=== PATIENT | female | born 1980 | race Caucasian/White ===

== ENCOUNTER 2018-10-26 07:08 | Day surgery (SDC) | payer BC ==
[~2018-10-26 07:08] MED LIST: Glycopyrrolate 0.2 MG/ML SDV ONE; Lidocaine 2% 5 ML SDV ONE; Midazolam 1 MG/ML 2 ML SDV ONE; Neostigmine Methylsulfate 1 MG/ML 5 ML Syringe ONE; Ondansetron 4 MG/2 ML SDV ONE; Propofol 200 MG/20 ML SDV ONE; Rocuronium 100 MG/10 ML MDV ONE; Sodium Chloride 0.9% 10 ML SDV IV PRN; Sodium Chloride 0.9% 10 ML Syringe FLUSH PRN; Sodium Chloride 0.9% 2.5 ML Syringe FLUSH PRN; ceFAZolin 1 GM Vial IM ONE; fentaNYL 250 MCG/5 ML SDV ONE
[2018-10-26] MEDS ORDERED: Bupivacaine 0.25% 10 ML SDV ONE (07:39)
[2018-10-26] MEDS ORDERED: Scopolamine 1.5 MG Transdermal Patch TRDERM PRN (08:37)
--- NOTE | 2018-10-26 08:37 | PCM.PREANE ---
Preanesthetic Assessment - Anesthesia/Transfusion/Family Hx Anesthesia History: Prior Anesthesia Reaction Type of Anesthesia Reaction: Excessive Nausea/Vomiting Family History of Anesthesia Reaction: No Transfusion History: No Prior Transfusion(s) - Review of Systems General: No Symptoms Pulmonary: No Symptoms Cardiovascular: No Symptoms Gastrointestinal: No Symptoms Neurological: No Symptoms Other: Reports: None - Physical Assessment NPO Status Date: 10/25/18 Height: 5 ft 4 in Weight: 71.668 kg ASA Class: 1 Mental Status: Alert & Oriented x3 Airway Class: Mallampati = 2 Dentition: Reports: Normal Dentition ROM/Head Extension: Full Lungs: Clear to Auscultation, Normal Respiratory Effort Cardiovascular: Regular Rate, Regular Rhythm - Lab Values: Laboratory Last Values WBC 6.18 K/uL (4.0-11.0) 10/26/18 08:13 RBC 4.29 M/uL (4.30-5.90) L 10/26/18 08:13 Hgb 13.7 g/dL (12.0-16.0) 10/26/18 08:13 Hct 42.1 % (36.0-46.0) 10/26/18 08:13 MCV 98.1 fL (80.0-98.0) H 10/26/18 08:13 MCH 31.9 pg (27.0-32.0) 10/26/18 08:13 MCHC 32.5 g/dL (31.0-37.0) 10/26/18 08:13 RDW Std Deviation 46.9 fl (28.0-62.0) 10/26/18 08:13 RDW Coeff of Mikala 13 % (11.0-15.0) 10/26/18 08:13 Plt Count 330 K/uL (150-400) 10/26/18 08:13 MPV 9.50 fL (7.40-12.00) 10/26/18 08:13 Nucleated RBC % 0.0 /100WBC 10/26/18 08:13 Nucleated RBCs # 0 K/uL 10/26/18 08:13 - Allergies Allergies/Adverse Reactions: Allergies Allergy/AdvReac Type Severity Reaction Status Date / Time amoxicillin Allergy Other Verified 10/20/18 14:42 bee venom protein (honey bee) Allergy Hives Verified 10/20/18 14:45 latex Allergy Rash Verified 10/20/18 14:46 - Blood Blood Available: No - Anesthesia Plan Pre-Op Medication Ordered: Other (scop) - Acknowledgements Anesthesia Type Planned: General Anesthesia Pt an Appropriate Candidate for the Planned Anesthesia: Yes Alternatives and Risks of Anesthesia Discussed w Pt/Guardian: Yes Pt/Guardian Understands and Agrees with Anesthesia Plan: Yes Additional Comments: PMH: none PLAN: GET PreAnesthesia Questionnaire Genitourinary History: Reports: None 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: Neurological History: Reports: Headaches, Chronic, Other (See Below) Other Neuro History: gets tension headaches, hx of motion sickness Psychiatric History: Reports: Anxiety - Past Surgical History Head Surgeries/Procedures: Reports: None HEENT Surgical History: Reports: Oral Surgery, Other (See Below) Other HEENT Surgeries/Procedures: has 1 upper dental implant, wisdom teeth removal Female Surgical History: Reports: Section Other Female Surgeries/Procedures: x2 - SUBSTANCE USE Smoking Status *Q: Current Some Day Smoker Tobacco Use Within Last Twelve Months: Cigarettes Recreational Drug Use History: No - HOME MEDS Home Medications: Home Meds FLUoxetine HCl [Prozac] 20 mg PO DAILY 10/20/18 [History] Multivitamin [Daily Multiple Vitamin] 1 tab PO DAILY 10/20/18 [History] - CURRENT (IN HOUSE) MEDS Current Meds: Current Medications Cefazolin Sodium (Ancef) 1 gm IM ONETIME ONE Stop: 10/26/18 05:01 Lactated Ringer's (Ringers, Lactated) 1,000 mls @ 125 mls/hr IV ASDIRECTED RAFA Sodium Chloride (Saline Flush) 10 ml FLUSH ASDIRECTED PRN PRN Reason: Keep Vein Open Sodium Chloride (Saline Flush) 2.5 ml FLUSH ASDIRECTED PRN PRN Reason: Keep Vein Open Sodium Chloride (Normal Saline) 10 ml IV ASDIRECTED PRN PRN Reason: IV Use Discontinued Medications Bupivacaine HCl (Sensorcaine-Mpf 0.25%) Confirm Administered Dose 10 ml .ROUTE .STK-MED ONE Stop: 10/26/18 07:40 Fentanyl (Sublimaze) Confirm Administered Dose 250 mcg .ROUTE .STK-MED ONE Stop: 10/26/18 07:01 Glycopyrrolate (Robinul) Confirm Administered Dose 0.4 mg .ROUTE .STK-MED ONE Stop: 10/26/18 07:01 Lidocaine (Xylocaine-Mpf 2%) Confirm Administered Dose 5 ml .ROUTE .STK-MED ONE Stop: 10/26/18 07:01 Midazolam HCl (Versed 1 Mg/Ml) Confirm Administered Dose 2 mg .ROUTE .STK-MED ONE Stop: 10/26/18 07:01 Neostigmine Methylsulfate (Neostigmine) Confirm Administered Dose 5 mg .ROUTE .ST-MED ONE Stop: 10/26/18 07:01 Ondansetron HCl (Zofran) Confirm Administered Dose 4 mg .ROUTE .STK-MED ONE Stop: 10/26/18 07:01 Propofol (Diprivan 20 Ml) Confirm Administered Dose 200 mg .ROUTE .STK-MED ONE Stop: 10/26/18 07:01 Rocuronium [place] (Zemuron) Confirm Administered Dose 100 mg .ROUTE .STK-MED ONE Stop: 10/26/18 07:02
[2018-10-26] MEDS ORDERED: Lactated Ringers 1,000 ML IV SCH (08:45)
[2018-10-26] MEDS ORDERED: Dexamethasone 4 MG/ML 5 ML MDV ONE (10:05)
[2018-10-26] MEDS ORDERED: Ketorolac 30 MG/ML SDV ONE (11:13)
--- NOTE | 2018-10-26 11:33 | PCM.OPNOTE ---
- General Post-Op/Procedure Note Date of Surgery/Procedure: 10/26/18 Operative Procedure(s): Operative laparoscopy with bilateral salpingectomy/ essure coils removed. Diagnostic hysteroscopy with D&C, thermal endometrial ablation Findings: Normal appearing ovaries/fallopian tubes. Essure coils removed No endometrial intracavitary lesions identified Pre Op Diagnosis: Menorrhagia. Pelvic pain Post-Op Diagnosis: Same Anesthesia Technique: General ET Tube Primary Surgeon: Lucero Tovar [employer] Secretary: Shannon Duenas Fluid Replacement, Intraop: 1,500 EBL in mLs: 20 Complications: none known Condition: Good Free Text/Narrative:: Dictation [id number]
[2018-10-26] MEDS: fentaNYL 100 MCG/2 ML SDV IVPUSH PRN ×2 (11:45→11:57)
--- NOTE | 2018-10-26 12:34 | OR ---
SURGEON: Lucero Tovar M.D. DATE OF PROCEDURE: 10/26/2018 PREOPERATIVE DIAGNOSES: 1. Menorrhagia. 2. Pelvic pain. POSTOPERATIVE DIAGNOSES: 1. Menorrhagia. 2. Pelvic pain. PROCEDURES: 1. Operative laparoscopy with bilateral salpingectomy and Essure coils removal. 2. Diagnostic hysteroscopy with dilation and curettage of endometrium and thermal endometrial ablation. PRIMARY SURGEON: Lucero Tovar MD. CHASER HELPER: Divina Duenas. ANESTHESIA: General endotracheal anesthesia. FLUIDS: 1500 mL of crystalloid. ESTIMATED BLOOD LOSS: 20 mL. COMPLICATIONS: None. FINDINGS: Normal-appearing pelvis overall. Some uterovesical adhesions noted. Otherwise normal-appearing ovaries and tubes. Upon hysteroscopy, normal-appearing endometrial cavity with no intracavitary lesions identified. DISPOSITION: The patient to PACU in stable condition. SPECIMENS: To Pathology. PROCEDURE IN DETAIL: Evelyn is a 38-year-old female who has ongoing difficulties with menorrhagia and pelvic pain. At this time, she would like to have her Essure coils removed. Discussed with her the best way to do this to actually remove the fallopian tubes which will expose the coils and allow removal laparoscopically. She would like to proceed in this manner. She is also having difficulty with heavy menses and prefers to proceed with an endometrial ablation at the same time. Risks of procedure have been discussed with proper consent obtained. The patient was taken to the operating room where she underwent general endotracheal anesthesia, was then placed in modified dorsal lithotomy position, was prepped and draped in usual sterile fashion, SCDs to lower extremity. Bladder was drained. Received Ancef prophylactically. A time-out was performed. Speculum was introduced in the vagina. Anterior lip of cervix was grasped with an Allis clamp and a NEON Concierge uterine manipulator was gently placed. Allis clamp and speculum were now removed. Gloves changed. Attention turned abdominally. Infraumbilically, 0.25% Marcaine was introduced. A 5 mm skin incision was made in the midline and anterior abdominal tented upward while the Veress needle was introduced. Saline hanging drop test was performed. Pneumoperitoneum was achieved. The Veress needle was then removed. 5 mm trocar was introduced with laparoscope and peritoneal contents were identified. Uterus is visualized along with fallopian tubes. A 10 mm suprapubic midline trocar was introduced after prepping this region with 0.25% Marcaine and creating a 10 mm skin incision. A left lower quadrant trocar was also introduced after prepping the region with 0.25% Marcaine creating 5 mm skin incision and introducing 5 mm trocar. The left fallopian tube was able to be isolated, grasped at the fimbriated end. Salpingectomy was performed using LigaSure coming across. The tube was able to palpate the Essure coil. The fallopian tube was now removed through the 10 mm port and sent to pathology. Essure coil was grasped with a laparoscopic Allis grasper and gently teased from the cornual region. This will be also sent with the left fallopian tube with specimen for pathology. A similar fashion was performed on the patient's right side. Right fallopian tube grasped with laparoscopic grasper by assistant manager trainee. LigaSure was utilized to perform salpingectomy crossing the tube at the level of the cornua. Tube was removed through the suprapubic port. This will be sent to pathology, followed by removal of the Essure coil. Any areas of oozing were then cauterized. Pelvis was copiously irrigated, suction dried. Upper abdomen reveals no acute pathology. The relief pressure was decreased to 5 mm. Inspected operative site and appears hemostatic. Therefore, pelvis once again irrigated, suction dried, and pneumoperitoneum was released. The laparoscopic instruments were removed under direct visualization followed by laparoscopic infraumbilical trocar. Skin edges were reapproximated using 3-0 Vicryl in subcuticular fashion. Attention was now turned vaginally. The speculum was introduced. Anterior lip of the cervix was grasped with an Allis clamp. After removing the Hulka manipulator, the cervix was gently dilated to 6 mm and 5 mm hysteroscope was now gently introduced using normal saline as distention media. The fundus was able to be visualized followed by left ostia, right ostia, lower uterine segment, endocervical canal. No polypoid or uterine fibroids were noted. Photographs taken. The hysteroscope was removed. Gentle sharp curettage was performed. Specimen to pathology. The Esthela device was now prepped according to podopediatrician protocol. The device was introduced into the uterine cavity. Arms extended. Balloon insufflated and the preparatory test was performed, which was satisfactorily completed. The full thermal and ablation process now took place for a total of 120 seconds. At the end of the cycle, the arms were released, the balloon deflated, and the Esthela device was removed from the uterine cavity. Hemostasis appeared evident. All instruments were removed vaginally. Sponge, instrument, and needle counts were correct x2. The patient has tolerated the procedure well overall. She will go to PACU in stable condition. Specimens to pathology. [place] / [place] /[id number] MTDD
--- NOTE | 2018-10-26 12:35 | PCM.POSTAN ---
POST ANESTHESIA ASSESSMENT - MENTAL STATUS Mental Status: Alert, Oriented - RESPIRATORY Respiratory Status: Respiratory Rate WNL, Airway Patent, O2 Saturation Stable - CARDIOVASCULAR CV Status: Pulse Rate WNL, Blood Pressure Stable - GASTROINTESTINAL GI Status: No Symptoms - POST OP HYDRATION Hydration Status: Adequate & Stable
--- NOTE | 2018-10-26 13:20 | PCM48HPAN ---
Post Anesthesia Note - EVALUATION WITHIN 48HRS OF ANESTHETIC Vital Signs in Normal Range: Yes Patient Participated in Evaluation: Yes Respiratory Function Stable: Yes Airway Patent: Yes Cardiovascular Function Stable: Yes Hydration Status Stable: Yes Pain Control Satisfactory: Yes Nausea and Vomiting Control Satisfactory: Yes Mental Status Recovered: Yes Resp Rate: 16
== END 2018-10-26 13:40 | disposition home or self-care (01) ==
LOC: MW.SDS 07:08
PROVIDERS: ATTEND Obstetrics & Gynecology
DX: N92.0 Excessive and frequent menstruation with regular cycle (principal); R10.2 Pelvic and perineal pain; F41.9 Anxiety disorder, unspecified; F17.210 Nicotine dependence, cigarettes, uncomplicated; Z79.899 Other long term (current) drug therapy; Z91.030 Bee allergy status; Z91.040 Latex allergy status
CPT/HCPCS: 36415; 58563; 58661; 84703; 85027; A9270; J0690; J1100; J1885; J2001; J2250; J2405; J2704; J3010; J3490; J7120; 00840; 88300; 88302; 88305

== ENCOUNTER 2020-09-16 03:00 | Emergency (ER) | payer BC ==
--- NOTE | 2020-09-16 03:09 | EDM.PDOC ---
ED HPI GENERAL MEDICAL PROBLEM - General Chief Complaint: General Stated Complaint: MEDICAL CLEARANCE Time Seen by Provider: 09/16/20 03:04 - History of Present Illness INITIAL COMMENTS - FREE TEXT/NARRATIVE: HISTORY AND PHYSICAL: History of present illness: This is a 40-year-old female who presents ER today for medical clearance by [place] law enforcement. Patient denies any recent fevers, shakes, chills, nausea, vomiting, diarrhea, dysuria, frequency, urgency, chest pain, shortness of breath. Patient has any history of hypertension, diabetes, liver, lung, kidney problems. Patient has no complaints at this time and is here per request by law enforcement secondary to alcohol use earlier today. Patient does admit to alcohol use and tobacco use. Patient denies any drug use history. Review of systems: As per history of present illness and below otherwise all systems reviewed and negative. Past medical history: As per history of present illness and as reviewed below otherwise noncontributory. Surgical history: As per history of present illness and as reviewed below otherwise noncontributory. Social history: No reported history of drug abuse. Family history: As per history of present illness and as reviewed below otherwise noncontributory. Physical exam: This patient was seen and evaluated during the 2019 SARS-CoV-2 novel coronavirus pandemic period. Community viral transmission is ongoing at time of this encounter and the emergency department is operating under pandemic response procedures. Constitutional: Patient is oriented to person, place, and time. Appears well- developed and well-nourished. No distress. HEENT: Moist mucous membranes Head: Normocephalic and atraumatic Eyes: Right eye exhibits no discharge. Left eye exhibits no discharge. No scleral icterus Neck: Normal range of motion. No tracheal deviation present. Cardiovascular: Normal rate and regular rhythm. Pulmonary: Effort normal, no respiratory distress. Abdominal: No distention Musculoskeletal: Normal range of motion Neurologic: Alert and oriented to person, place and time. Skin: [place], warm and dry. Psychiatric: Normal mood and affect. Behavior is normal. Judgment and thought content normal. Nursing note and vital signs have been reviewed Diagnostics: [] Therapeutics: [] Assessment and plan: 40-year-old female who presents ER today for medical clearance by law enforcement. Patient is medically stable at this time without any further indication for emergency room evaluation or work-up. Patient be discharged to custody of law enforcement with instructions to return to the ER for any new or concerning symptoms should arise. Definitive disposition and diagnosis as appropriate pending reevaluation and review of above. 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: Neurological History: Reports: Headaches, Chronic, Other (See Below) Other Neuro History: gets tension headaches, hx of motion sickness Psychiatric History: Reports: Anxiety - Past Surgical History Head Surgeries/Procedures: Reports: None HEENT Surgical History: Reports: Oral Surgery, Other (See Below) Other HEENT Surgeries/Procedures: has 1 upper dental implant, wisdom teeth removal Female Surgical History: Reports: Section Other Female Surgeries/Procedures: x2 ED ROS GENERAL - Review of Systems Review Of Systems: See Below ED EXAM, GENERAL - Physical Exam Exam: See Below Departure - Departure Time of Disposition: 03:08 Disposition: Home, Self-Care 01 Condition: Good Clinical Impression: Medical clearance for incarceration - Discharge Information Instructions: Medical Screening Exam Referrals: Chris Gr MD [Primary Care Provider] - Additional Instructions: You were seen and evaluated in the ER today for medical clearance per request of law enforcement. At this time there are no acute emergent issues that need to be addressed. Please return patient back to the ED if she develops any new or concerning symptoms. The following information is given to patients seen in the emergency department who are being discharged to home. This information is to outline your options for follow-up care. We provide all patients seen in our emergency department with a follow-up referral. The need for follow-up, as well as the timing and circumstances, are variable depending upon the specifics of your emergency department visit. If you don't have a primary care physician on staff, we will provide you with a referral. We always advise you to contact your personal physician following an emergency department visit to inform them of the circumstance of the visit and for follow-up with them and/or the need for any referrals to a consulting specialist. The emergency department will also refer you to a specialist when appropriate. This referral assures that you have the opportunity for follow-up care with a specialist. All of these measure are taken in an effort to provide you with optimal care, which includes your follow-up. Under all circumstances we always encourage you to contact your private physician who remains a resource for coordinating your care. When calling for follow-up care, please make the office aware that this follow-up is from your recent emergency room visit. If for any reason you are refused follow-up, please contact the [facility] Emergency Department at and asked to speak to the emergency department charge nurse. [facility] - Primary [facility] [address] [place] [address] [id number] [address] [id number]
== END 2020-09-16 03:15 | disposition home or self-care (01) ==
LOC: MW.ED 03:00
DX: Z02.89 Encounter for other administrative examinations (principal); Z88.0 Allergy status to penicillin; Z91.030 Bee allergy status; Z91.040 Latex allergy status; Z79.899 Other long term (current) drug therapy
CPT/HCPCS: 99282; 99283